=== PATIENT | male | born 1980 | race Caucasian/White ===

== ENCOUNTER 2024-09-12 12:07 | Outpatient (OUT) | payer OTHER, SELFPAY | END 2024-09-12 12:08 | disposition home or self-care (01) | LOC: SLEEP 12:07 | PROVIDERS: PCP Family Medicine; Visit Provider Family Medicine | DX: G47.33 Obstructive sleep apnea (adult) (pediatric) (principal) | CPT/HCPCS: 95806 ==

== ENCOUNTER 2024-10-01 23:21 | Outpatient (OUT) | payer OTHER, SELFPAY ==
--- OUTSIDE RECORDS SUMMARY | 2024-10-01 23:23 | XMS_ITS | CCD ---
Author Organization [facility] CliniSy[facility] Care Team Providers Care Senior Wind Turbine Technician Name Role Phone Kaleigh Hernandez Unavailable Antonio Ball Unavailable Allergies Allergy Classification Reported Allergen(s) Allergy Type Date of Onset Reaction(s) Facility (4 sources) patient allergy list reviewed by nurse or physicia Propensity to adverse reactions Comment:Done [facility] Other (4 sources) Allergies Reconciled Propensity to adverse reactions Unknown [facility] Other Medications Current Medications Medication Drug Class(es) Dates Sig (Normalized) Sig (Original) lisdexamfetamine dimesylate 40 mg oral capsule (20 sources) Central Nervous System Stimulant Start: 04-02-2024 End: 08-19-2024 take 1 capsule by mouth once daily Lisdexamfetamine 40 mg capsule Active 40 MG PO Daily August 19, 2024 Start: 09-25-2023 End: 03-26-2024 take 1 capsule by mouth once daily Lisdexamfetamine 40 mg capsule Discontinued 40 MG PO Daily September 25, 2023 October 27, 2023 11:34am Start: 08-22-2023 take 1 capsule by mo [facility] every twenty-four hours Vyvanse 40 MG 1 capsule Orally Once a day for 30 days Aug, Active Start: 07-19-2023 take 1 capsule by mo [facility] every twenty-four hours Vyvanse 40 MG 1 capsule Orally Once a day for 30 days Jul, Active Start: 07-04-2023 take 1 capsule by mo [facility] every twenty-four hours Vyvanse 40 MG 1 capsule Orally Once a day for 30 days Jun, Active Start: 06-19-2023 take 1 capsule by mo [facility] every twenty-four hours Vyvanse 30 MG 1 capsule Orally Once a day for 30 days Jun, Active Start: 06-15-2023 take 1 capsule by mo [facility] every twenty-four hours Vyvanse 30 MG 1 capsule Orally Once a day for 30 days May, Active Start: 03-30-2023 take 1 capsule by mo [facility] every twenty-four hours Vyvanse 30 MG 1 capsule Orally Once a day for 30 days Mar, Active Start: 02-27-2023 take 1 capsule by mo [facility] every twenty-four hours Vyvanse 30 MG 1 capsule Orally Once a day for 30 days Feb, Active Start: 01-20-2023 take 1 capsule by mo [facility] every twenty-four hours Vyvanse 30 MG 1 capsule Orally Once a day for 30 days Jan, Active Start: 12-14-2022 take 1 capsule by mo [facility] every twenty-four hours Vyvanse 30 MG 1 capsule Orally Once a day for 30 days November, Active Start: 11-07-2022 take 1 capsule by mo [facility] every twenty-four hours Vyvanse 30 MG 1 capsule Orally Once a day for 30 days Oct, Active Start: 09-20-2022 take 1 capsule by mo [facility] every twenty-four hours Vyvanse 30 MG 1 capsule Orally Once a day for 30 days Sep, Active Problems Active Problems Problem Classification Problem Date Documented Da te Episodic/Chronic Anxiety disorders (4 sources) Anxiety disorder; Translations: [Other specified anxiety disorders] Chronic Attention-deficit, conduct, and disruptive behavior disorders (14 sources) Adult attention deficit hyperactivity disorder ; Translations: [Attention-deficit hyperactivity disorder, unspecified type] 09-25-2023 Chronic Attention-deficit, conduct, and disruptive behavior disorders (10 sources) Attention-deficit hyperactivity disorder, unspecified type; Translations: [Attention-deficit hyperactivity disorder, unspecified type] Chronic Attention-deficit, conduct, and disruptive behavior disorders (3 sources) Attention deficit hyperactivity disorder; Translations: [Attention-deficit hyperactivity disorder, unspecified type] Chronic Other circulatory disease (4 sources) Elevated blood-pressure reading without diagnosis of hypertension; Translations: [Elevated blood-pressure reading, without diagnosis of hypertension] Episodic Other nutritional; endocrine; and metabolic disorders (3 sources) Obese class I; Translations: [Body mass index (BMI) 33.0-33.9, adult] Chronic Other nutritional; endocrine; and metabolic disorders (1 source) Body mass index (BMI) 33.0-33.9, adult; Translations: [Body mass index (BMI) 33.0-33.9, adult] Chronic Sprains and strains (2 sources) Strain of muscle, fascia and tendon of other parts of biceps, right arm, initial encounter; Translations: [Strain of right biceps] 11-17-2023 Episodic Past or Other Problems Problem Classification Problem Date Documented Da te Episodic/Chronic Influenza (4 sources) Influenza due to identified novel influenza A virus with other respiratory manifestations; Translations: [Influenza due to identified novel influenza A virus with other respiratory manifestations] Onset: 09-19-2018 Episodic Other upper respiratory infections (4 sources) Acute sinusitis; Translations: [Acute sinusitis, unspecified] Onset: 12-10-2014 Episodic Vital Signs Date Time Vital Sign Value Performing Clinician Facility 09-09-2024 09:14-0500 Body height 182.88 cm [facility] 09-09-2024 09:14-0500 Body mass index (BMI) [Ratio] 34.2 kg/m2 [facility] 09-09-2024 09:14-0500 Body weight 114.39 kg [facility] 09-09-2024 09:14-0500 Diastolic blood pressure 82 mm[Hg] [facility] 09-09-2024 09:14-0500 Heart rate 60 /min [facility] 09-09-2024 09:14-0500 Respiratory rate 12 /min [facility] 09-09-2024 09:14-0500 SaO2% (BldA) [Mass fraction] 96 % [facility] 09-09-2024 09:14-0500 Systolic blood pressure 120 mm[Hg] [facility] 03-26-2024 13:51-0400 Body height 182.88 cm [facility] 03-26-2024 13:51-0400 Body mass index (BMI) [Ratio] 34.5 kg/m2 [facility] 03-26-2024 13:51-0400 Body weight 115.66 kg [facility] 03-26-2024 13:51-0400 Diastolic blood pressure 80 mm[Hg] [facility] 03-26-2024 13:51-0400 Heart rate 80 /min [facility] 03-26-2024 13:51-0400 Systolic blood pressure 122 mm[Hg] [facility] 07-04-2023 08:30-0500 Body height 182.88 cm Kaleigh Hernandez Other [facility] Other 07-04-2023 08:30-0500 Body mass index (BMI) [Ratio] 34.66 kg/m2 Kaleigh Hernandez Other [facility] Other 07-04-2023 08:30-0500 Body weight 115.94 kg Kaleigh Hernandez Other [facility] Other 07-04-2023 08:30-0500 Diastolic blood pressure 78 mm[Hg] Kaleigh Hernandez Other [facility] Other 07-04-2023 08:30-0500 Systolic blood pressure 113 mm[Hg] Kaleigh Hernandez Other [facility] Other Encounters Encounter Date Encounter Type Care Provider Facility Start: 09-09-2024 End: 09-09-2024 ambulatory [facility] Work Phone: Start: 09-09-2024 End: 09-09-2024 Patient encounter procedure [facility] Physician [facility] Work Phone: Start: 03-26-2024 End: 03-26-2024 ambulatory [facility] Work Phone: Start: 03-26-2024 End: 03-26-2024 Patient encounter procedure [facility] Physician [facility] Work Phone: Start: 08-22-2023 End: 08-22-2023 ambulatory Kaleigh Hernandez Other [facility] Other Start: 08-22-2023 Telephone encounter Kaleigh David [facility] Start: 07-19-2023 End: 07-19-2023 ambulatory Kaleigh David Other [facility] Other Start: 07-19-2023 Telephone encounter Kaleigh David [facility] Start: 07-04-2023 End: 07-04-2023 ambulatory Kaleigh David Other [facility] Other Start: 07-04-2023 Office outpatient vi sit 15 minutes Kaleigh David [facility] Start: 06-19-2023 End: 06-19-2023 ambulatory Kaleigh David Other [facility] Other Start: 06-19-2023 Telephone encounter Kaleigh David [facility] Start: 06-14-2023 End: 06-14-2023 ambulatory Kaleigh David Other [facility] Other Start: 06-14-2023 Telephone encounter Kaleigh Hernandez [facility] Start: 03-29-2023 End: 03-29-2023 ambulatory Kaleigh David Other [facility] Other Start: 03-29-2023 Telephone encounter Kaleigh David [facility] Start: 02-27-2023 End: 02-27-2023 ambulatory Kaleigh David Other [facility] Other Start: 02-27-2023 Telephone encounter Kaleigh Hernandez [facility] Start: 01-20-2023 End: 01-20-2023 ambulatory Antonio Ball Other [facility] Other Start: 01-20-2023 Telephone encounter Antonio Ball [facility] Start: 12-14-2022 End: 12-14-2022 ambulatory Kaleigh Hernandez Other [facility] Other Start: 12-14-2022 Telephone encounter Kaleigh Hernandez [facility] Start: 11-07-2022 End: 11-07-2022 ambulatory Kaleigh Hernandez Other [facility] Other Start: 11-07-2022 Telephone encounter Kaleigh Hernandez [facility] Start: 11-04-2022 End: 11-04-2022 ambulatory Kaleigh Hernandez Other [facility] Other Start: 11-04-2022 Telephone encounter Kaleigh Hernandez [facility] Start: 09-20-2022 End: 09-20-2022 ambulatory Kaleigh Hernandez Other [facility] Other Start: 09-20-2022 Telephone encounter Kaleigh Hernandez [facility] Start: 03-07-2017 Ambulatory Facility:[facility] Payers Date Payer Category Payer Policy ID [facility] [id number] Private Health Insurance [id number] Social History Date Type Detail Facility Unknown if ever smoked [facility] Other Sex Assigned At Sex Assigned At Bir th [facility] Other Start: 11-15-2023 End: 11-15-2023 Tobacco smoking status NHIS Ex-smoker (finding) [facility] Start: 1980 Sex Assigned At Male F [facility] Start: 09-09-2024 Sex Male (finding) [facility] Clinical Notes 12-14-2022 to 08-22-2023 Note Date & Type Note Facility 08-22-2023 Evaluation note Encounter Date Diagnosis Assessment Notes Aug, Adult ADHD (ICD-10 - F90.9) [facility] Other 01-03-2024 Evaluation note* Encounter Date Diagnosis Assessment Notes Treatment Notes Treatment Clinical Notes Jul, Adult ADHD (ICD-10 - F90.9) [facility] Other 12-19-2023 Evaluation note* Encounter Date Diagnosis Assessment Notes Treatment Notes Treatment Clinical Notes Jun, Adult ADHD (ICD-10 - F90.9) Pt notes overall improvement, but even when he takes med later in the morning it doesn't last through his 3-11p shift. Will begin by increasing dose and monitor results. Dose increased to 40mg [facility] Other 12-04-2023 Evaluation note* Encounter Date Diagnosis Assessment Notes Treatment Notes Treatment Clinical Notes Jun, Adult ADHD (ICD-10 - F90.9) [facility] Other 11-29-2023 Evaluation note* Encounter Date Diagnosis Assessment Notes Treatment Notes Treatment Clinical Notes May, Adult ADHD (ICD-10 - F90.9) [facility] Other 09-13-2023 Evaluation note* Encounter Date Diagnosis Assessment Notes Treatment Notes Treatment Clinical Notes Mar, Adult ADHD (ICD-10 - F90.9) [facility] Other 08-14-2023 Evaluation note* Encounter Date Diagnosis Assessment Notes Treatment Notes Treatment Clinical Notes Feb, Adult ADHD (ICD-10 - F90.9) [facility] Other 07-07-2023 Evaluation note* Encounter Date Diagnosis Assessment Notes Treatment Notes Treatment Clinical Notes Jan, Adult ADHD (ICD-10 - F90.9) [facility] Other 05-31-2023 Evaluation note* Encounter Date Diagnosis Assessment Notes Treatment Notes Treatment Clinical Notes November, Adult ADHD (ICD-10 - F90.9) [facility] Other Chior complaint+Reason for visit Narrative* Chief Complaint Admit Date referral for sleep apnea September 09, 2024 9:12am [facility] Work Phone: Evaluation noteNo InformationNort Nativo Other Evaluation noteNo assessment information available [facility] Work Phone: History general Narrative - Reported* Type Description Date Medical History Adult ADHD Surgical History APPENDECTOMY 2015 Hospitalization History SEE SURGICAL HX [facility] Other Summary Purpose Family History Relationship Condition Age at Onset Recorded Date/T kathy father Unknown Advance Directives Advance Directive Response Recorded Date/ Time Advance Directives No November 15, 2023 8:32am Advance Directive Response Recorded Date/ Time Advance Directives No November 15, 2023 7:32am Chief Complaint and Reason for Visit Chief Complaint Fill Out Work Paperw ork Additional Source Comments (unrecognized sect ion and content) No Status Records Found INFORMATION SOURCE (unrecogn ized section and content) DATE CREATED AUTHOR 01/10/2018 [facility] REASON FOR VISIT (unrecogniz ed section and content) prescription refillRefillref illrefillrefillRefillRefillrefillmessageMedication Discussionmessagerefill Care Teams (unrecognized sec tion and content) Team Status: Active Member Role Status Dates Kaleigh Hernandez MD Primary Care Provider Active Team Status: Inactive Member Role Status Dates Kaleigh Hernandez MD Primary Care Provide r, Attending Provider Active Start: March 26, 2024 End: March 26, 2024 Team Status: Inactive Member Role Status Dates Kaleigh Hernandez MD Primary Care Provide r, Attending Provider Active Start: September 09, 2024 End: September 09, 2024 Goals (unrecognized section and content) Goals may be documented in a n alternate section FOR RECORDS PERTAINING TO PATIENTS WHO ARE OR HAVE BEEN ENROLLED IN A CHEMICAL DEPENDENCY/SUBSTANCEABUSE PROGRAM, SOME INFORMATION MAY BE OMITTED. This clinical summary was aggregated from multiple sources. Caution should be exercised in using it in the provision of clinical care. This summary normalizes information from multiple sources, and as a consequence, information in this document may materially change the coding, format and clinical context of patient data. In addition, data may be omitted in some cases. CLINICAL DECISIONS SHOULD BE BASED ON THE PRIMARY CLINICAL RECORDS. [employer] provides no warranty or guarantee of the accuracy or completeness of information in this document.
== END 2024-10-01 23:22 | disposition home or self-care (01) ==
LOC: SLEEP 23:21
PROVIDERS: PCP Family Medicine; Visit Provider Family Medicine
DX: G47.33 Obstructive sleep apnea (adult) (pediatric) (principal)
CPT/HCPCS: 95811

== ENCOUNTER 2024-10-14 09:09 | Outpatient (OUT) | payer OTHER, SELFPAY ==
[2024-10-14 09:25] LABS: Basophils Percent Auto 0.5 % (0.2-2.0); Eosinophils Absolute Auto 0.1 10^3/uL (0.0-0.7); Hematocrit 39.9 % (42.0-54.0); Immature Granulocytes Abs Auto 0.01 10^3/uL (0.00-0.03); Immature Granulocytes Pct Auto 0.2 % (0.0-0.5); Lymphocytes Absolute Auto 1.8 10^3/uL (1.2-3.8); Lymphocytes Percent Auto 30.1 % (20.5-60.0); Mean Corpuscular HGB Conc 35.1 g/dL (29.9-35.2); Mean Corpuscular Hemoglobin 29.2 pg (25.9-34.0); Mean Corpuscular Volume 83.1 fL (80.0-94.0); Mean Platelet Volume 8.8 fL (9.5-13.5); Monocytes Absolute Auto 0.7 10^3/uL (0.3-0.8); Monocytes Percent Auto 11.2 % (1.7-12.0); Neutrophils Absolute Auto 3.4 10^3/uL (1.4-6.5); Platelet Count 218 10^3/uL (150-450); Red Cell Distribution Width 12.5 % (11.0-15.0)
--- OUTSIDE RECORDS SUMMARY | 2024-10-14 09:30 | XMS_ITS | CCD ---
Author Organization [facility] Care Team Providers Care [employer] Associate Name Role Phone Kaleigh Hernandez Unavailable Antonio Ball Unavailable Allergies Allergy Classification Reported Allergen(s) Allergy Type Date of Onset Reaction(s) Facility (4 sources) patient allergy list reviewed by nurse or physicia Propensity to adverse reactions Comment:Done [employer] Other (4 sources) Allergies Reconciled Propensity to adverse reactions Unknown [employer] Other Medications Current Medications Medication Drug Class(es) Dates Sig (Normalized) Sig (Original) lisdexamfetamine dimesylate 40 mg oral capsule (20 sources) Central Nervous System Stimulant Start: 04-02-2024 End: 09-24-2024 take 1 capsule by mouth once daily Lisdexamfetamine 40 mg capsule Active 40 MG PO Daily September 24, 2024 Start: 09-25-2023 End: 03-26-2024 take 1 capsule by mouth once daily Lisdexamfetamine 40 mg capsule Discontinued 40 MG PO Daily September 25, 2023 October 27, 2023 12:34pm Start: 08-22-2023 take 1 capsule by mo [facility] every twenty-four hours Vyvanse 40 MG 1 capsule Orally Once a day for 30 days Aug, Active Start: 07-19-2023 take 1 capsule by mo ut every twenty-four hours Vyvanse 40 MG 1 capsule Orally Once a day for 30 days Jul, Active Start: 07-04-2023 take 1 capsule by mo ut every twenty-four hours Vyvanse 40 MG 1 capsule Orally Once a day for 30 days Jun, Active Start: 06-19-2023 take 1 capsule by mo [facility] every twenty-four hours Vyvanse 30 MG 1 [...] Chronic Attention-deficit, conduct, and disruptive behavior disorders (15 sources) Adult attention deficit hyperactivity disorder ; Translations: [Attention-deficit hyperactivity disorder, unspecified type] 09-25-2023 Chronic Attention-deficit, conduct, and disruptive behavior disorders (12 sources) Attention-deficit hyperactivity disorder, unspecified type; Translations: [Attention deficit disorder with hyperactivity] Chronic Attention-deficit, conduct, and disruptive behavior disorders [...] [Body mass index (BMI) 33.0-33.9, adult] Chronic Residual codes; unclassified (1 source) Obstructive sleep apnea syndrome; Translations: [Obstructive sleep apnea (adult) (pediatric)] 09-09-2024 Chronic Residual codes; unclassified (2 sources) Obstructive sleep apnea (adult) (pediatric); Translations: [Obstructive sleep apnea (adult)(pediatric)] 09-09-2024 Chronic Sprains and strains (3 sources) Strain of muscle, fascia and tendon [...] Time Vital Sign Value Performing Clinician Facility 10-14-2024 08:32-0400 Body height 182.[address] [facility] 10-14-2024 08:32-0400 Body mass index (BMI) [Ratio] 34.7 kg/m2 [facility] 10-14-2024 08:32-0400 Body weight 116.[address] [facility] 10-14-2024 08:32-0400 Diastolic blood pressure 77 mm[Hg] [facility] 10-14-2024 08:32-0400 Heart rate 60 /min [facility] 10-14-2024 08:32-0400 Systolic blood pressure 109 mm[Hg] [facility] 09-09-2024 09:14-0500 Body height 182.[address] [facility] 09-09-2024 09:14-0500 Body mass index (BMI) [Ratio] 34.2 kg/m2 [facility] 09-09-2024 09:14-0500 Body weight 114.[address] [facility] 09-09-2024 09:14-0500 Diastolic blood pressure 82 mm[Hg] [facility] 09-09-2024 09:14-0500 Heart rate 60 /min [facility] 09-09-2024 09:14-0500 Respiratory rate 12 /min [facility] 09-09-2024 09:14-0500 SaO2% (BldA) [Mass fraction] 96 % [facility] 09-09-2024 09:14-0500 Systolic blood pressure 120 mm[Hg] [facility] 03-26-2024 13:51-0400 Body height 182.[address] [facility] 03-26-2024 13:51-0400 Body mass index (BMI) [Ratio] 34.5 kg/m2 [facility] 03-26-2024 13:51-0400 Body weight 115.[address] [facility] 03-26-2024 13:51-0400 Diastolic blood pressure 80 mm[Hg] [facility] 03-26-2024 13:51-0400 Heart rate 80 /min [facility] 03-26-2024 13:51-0400 Systolic blood pressure 122 mm[Hg] [facility] 07-04-2023 08:30-0500 Body height 182.88 cm Kaleigh Hernandez Other [facility] [employer] Other 07-04-2023 08:30-0500 Body mass index (BMI) [Ratio] 34.66 kg/m2 Kaleigh Hernandez Other [facility] [employer] Other 07-04-2023 08:30-0500 Body weight 115.94 kg Kaleigh Hernandez Other [facility] [employer] Other 07-04-2023 08:30-0500 Diastolic blood pressure 78 mm[Hg] Kaleigh Hernandez Other [facility] [employer] Other 07-04-2023 08:30-0500 Systolic blood pressure 113 mm[Hg] Kaleigh Hernandez Other [employer] Other Encounters Encounter Date Encounter Type Care Provider Facility Start: 10-14-2024 Patient encounter status [facility] Start: 10-14-2024 End: 10-14-2024 ambulatory [facility] Work Phone: Start: 10-14-2024 End: 10-14-2024 Encounter for general adult medical examination without abnormal findings [facility] Start: 10-14-2024 End: 10-14-2024 Patient encounter procedure [facility] Work Phone: Start: 09-09-2024 End: 09-09-2024 ambulatory [facility] Work Phone: Start: 09-09-2024 End: 09-09-2024 Patient encounter procedure [facility] Work Phone: Start: 03-26-2024 End: 03-26-2024 ambulatory [facility] Work Phone: Start: 03-26-2024 End: 03-26-2024 Patient encounter procedure [facility] Work Phone: Start: 08-22-2023 End: 08-22-2023 ambulatory Kaleigh Hernandez Other [employer] Other Start: 08-22-2023 Telephone encounter Kaleigh Hernandez [facility] Start: 07-19-2023 End: 07-19-2023 ambulatory Kaleigh Hernandez Other [employer] Other Start: 07-19-2023 Telephone encounter Kaleigh Hernandez [facility] Start: 07-04-2023 End: 07-04-2023 ambulatory Kaleigh Hernandez Other [employer] Other Start: 07-04-2023 Office outpatient vi sit 15 minutes Kaleigh Hernandez [facility] Start: 06-19-2023 End: 06-19-2023 ambulatory Kaleigh David Other [employer] Other Start: 06-19-2023 Telephone encounter Kaleigh David [facility] Start: 06-14-2023 End: 06-14-2023 ambulatory Kaleigh David Other [employer] Other Start: 06-14-2023 Telephone encounter Kaleigh David [facility] Start: 03-29-2023 End: 03-29-2023 ambulatory Kaleigh David Other [employer] Other Start: 03-29-2023 Telephone encounter Kaleigh David [facility] Start: 02-27-2023 End: 02-27-2023 ambulatory Kaleigh David Other [employer] Other Start: 02-27-2023 Telephone encounter Kaleigh David [facility] Start: 01-20-2023 End: 01-20-2023 ambulatory Antonio Ball Other [employer] Other Start: 01-20-2023 Telephone encounter Antonio Ball [facility] Start: 12-14-2022 End: 12-14-2022 ambulatory Kaleigh Hernandez Other [employer] Other Start: 12-14-2022 Telephone encounter Kaleigh David [facility] Start: 11-07-2022 End: 11-07-2022 ambulatory Kaleigh David Other [employer] Other Start: 11-07-2022 Telephone encounter Kaleigh Hernandez [facility] Start: 11-04-2022 End: 11-04-2022 ambulatory Kaleigh Hernandez Other [employer] Other Start: 11-04-2022 Telephone encounter Kaleigh David [facility] Start: 09-20-2022 End: 09-20-2022 ambulatory Kaleigh Hernandez Other [facility] [employer] Other Start: 09-20-2022 Telephone encounter Kaleigh Hernandez [facility] Start: 03-07-2017 Ambulatory Facility:[facility] Plan of Treatment Date Care Activity Detail Author Comprehensive metabo lic 1999 panel - Serum or Plasma [facility] enter [facility] Payers Date Payer Category Payer Policy ID Blue Cross Blue [facility] [id number] Private Health Insurance [id number] Social History Date Type Detail Facility Unknown if ever smoked [facility] [employer] Other Sex Assigned At Sex Assigned At Bir th [facility] [employer] Other Start: 11-15-2023 End: 11-15-2023 Tobacco smoking status NHIS Ex-smoker (finding) [facility] Start: 1980 Sex Assigned At Male F [facility] Start: 09-09-2024 End: 10-14-2024 Sex Male (finding) [facility] Clinical Notes 12-14-2022 to 09-09-2024 Note Date & Type Note Facility 09-09-2024 Chief complaint+R roberto for visit Narrative referral for sleep apnea September 09, 2024 9:12am wellness October 14, 2024 8:3 0am Reason for Visit Admit Date Adult ADHD September 09, 2024 9:12am BERNARDA (obstructive sleep apnea) August 182024 9:12am Adult ADHD October 14, 2024 8:3 0am BERNARDA (obstructive sleep apnea) September 8:30am Wellness examination October 14, 2024 8: 30am [facility] Work Phone: 1(680) 621-490902-24-2025 Evaluation note* Diagnosis Onset Date Resolution Status Admit Date Adult ADHD acute September 09, 2024 9:12am BERNARDA (obstructive sleep apnea) acute September 09, 2024 9:12am Adult ADHD acute October 14 8:30am BERNARDA (obstructive sleep apnea) acute October 14, 2024 8:30am Wellness examination acute Chau h 2024 8:30am [facility] Work Phone: 1(644) 932-145302-06-2024 Evaluation note* Encounter Date Diagnosis Assessment Notes Treatment Notes Treatment Clinical Notes Aug, Adult ADHD (ICD-10 - F90.9) [employer] Other 01-03-2024 Evaluation note* Encounter Date Diagnosis Assessment Notes Treatment Notes Treatment Clinical Notes Jul, Adult ADHD (ICD-10 - F90.9) [employer] Other 12-19-2023 Evaluation note* Encounter Date Diagnosis Assessment Notes Treatment Notes Treatment Clinical Notes Jun, Adult ADHD (ICD-10 - F90.9) Pt notes overall improvement, but even when he takes med later in the morning it doesn't last through his 3-11p shift. Will begin by increasing dose and monitor results. Dose increased to 40mg [employer] Other 12-04-2023 Evaluation note* Encounter Date Diagnosis Assessment Notes Treatment Notes Treatment Clinical Notes Jun, Adult ADHD (ICD-10 - F90.9) [employer] Other 11-29-2023 Evaluation note* Encounter Date Diagnosis Assessment Notes Treatment Notes Treatment Clinical Notes May, Adult ADHD (ICD-10 - F90.9) [employer] Other 09-13-2023 Evaluation note* Encounter Date Diagnosis Assessment Notes Treatment Notes Treatment Clinical Notes Mar, Adult ADHD (ICD-10 - F90.9) [employer] Other 08-14-2023 Evaluation note* Encounter Date Diagnosis Assessment Notes Treatment Notes Treatment Clinical Notes Feb, Adult ADHD (ICD-10 - F90.9) [employer] Other 07-07-2023 Evaluation note* Encounter Date Diagnosis Assessment Notes Treatment Notes Treatment Clinical Notes Jan, Adult ADHD (ICD-10 - F90.9) [employer] Other 05-31-2023 Evaluation note* Encounter Date Diagnosis Assessment Notes Treatment Notes Treatment Clinical Notes November, Adult ADHD (ICD-10 - F90.9) [facility] [employer] Other Chief complaint+Reason for visit Narrative* Chief Complaint Admit Date referral for sleep apnea September 09, 2024 9:12am [facility] Work Phone: [facility] [employer] Other Evaluation noteNo assessment information available [facility] Work Phone: History general Narrative - Reported* Type Description Date Medical History Adult ADHD Surgical History APPENDECTOMY 2014 Hospitalization History SEE SURGICAL HX [facility] [employer] Other Summary Purpose Family History Relationship Condition [...] section and content) DATE CREATED AUTHOR 01/10/2018 [facility] REASON FOR VISIT (unrecogniz ed section [...] September 09, 2024 End: September 09, 2024 Team Status: Inactive Member Role Status Dates Kaleigh Hernandez MD Primary Care Provide r, Attending Provider Active Start: October 14, 2024 End: October 14, 2024 Goals (unrecognized section and content) Goals [...] BE BASED ON THE PRIMARY CLINICAL RECORDS. [facility]. provides no warranty or guarantee of the accuracy or completeness of information in this document.
[2024-10-14 09:51] LABS: Alanine Aminotransferase 31 U/L (16-63); Albumin Globulin Ratio 1.4; Albumin Level 4.1 g/dL (3.4-5.0); Alkaline Phosphatase 49 U/L (46-116); Anion Gap 13.2; Aspartate Amino Transferase 17 U/L (15-37); Bilirubin Total 0.6 mg/dL (0.2-1.0); Calcium 8.8 mg/dL (8.5-10.1); Carbon Dioxide 29.9 mmol/L (21.0-32.0); Chloride 105 mmol/L (98-107); Chol HDL Ratio 5.4; Cholesterol 168 mg/dL (<=200); Estimated GFR (African America >60 (>=60 mL/min/1.73m^2); Estimated GFR (Non-African Ame >60 (>=60 mL/min/1.73m^2); Globulin 2.9 g/dL; Glucose 102 mg/dL (74-106); HDL Cholesterol 31 mg/dL (40-60); Potassium 4.1 mmol/L (3.5-5.1); Sodium 144 mmol/L (136-145); Triglycerides 196 mg/dL (<=150); VLDL CHOLESTEROL 39.2 mg/dL
== END 2024-10-14 09:10 | disposition home or self-care (01) ==
LOC: LAB 09:12
PROVIDERS: PCP Family Medicine; Visit Provider Family Medicine
DX: Z00.00 Encounter for general adult medical examination without abnormal findings (principal)
CPT/HCPCS: 36415; 80053; 80061; 85025